=== PATIENT | female | born 1940 ===

== ENCOUNTER 2017-08-14 06:35 | Day surgery (SDC) | payer MEDICARE, MEDICAID ==
[2017-08-14] MEDS ORDERED: ceFAZolin 1 gm in NS 1 GM/100 ML BAG IVPB ONE (06:51)
[2017-08-14] MEDS ORDERED: Lactated Ringer's 500 ML IV ONE (09:30)
[2017-08-14] MEDS ORDERED: Propofol 10 mg/ml Inj (20 ML) ONE (09:40)
[2017-08-14] MEDS ORDERED: Midazolam 2 MG/2 ML VIAL ONE (09:41)
[2017-08-14] MEDS ORDERED: HYDROmorphone 0.5 mg/0.5 ml ISec IVP PRN (10:15)
[2017-08-14] MEDS ORDERED: Lactated Ringer's 1,000 ML IV ONE (12:00)
[2017-08-14] MEDS ORDERED: Morphine 10 mg/5 ml Oral Soln PO PRN (12:09)
[2017-08-14] MEDS ORDERED: Dextrose 5%/0.45% NS 1,000 ML IV SCH (12:15)
[2017-08-14 12:49] VITALS: RESP 18
[2017-08-14 12:59] VITALS: O2SAT 98
[2017-08-14 13:38] VITALS: BP 135/67; PULSE 73; TEMP 97.8
--- NOTE | 2017-08-14 20:21 | OP ---
PROCEDURE DATE: 08/14/2017 PREOPERATIVE DIAGNOSIS: Large left tonsil. POSTOPERATIVE DIAGNOSIS: Large left tonsil. PROCEDURE: Tonsillectomy. SIGNIFICANT FINDINGS: Enlarged left tonsil. DESCRIPTION OF PROCEDURE: The patient was brought into the room, placed in a supine position. Anesthesia was initiated through an ET tube. The patient was draped in the usual manner. A mouth gag was placed in the oral cavity, opened and suspended on the [employer] project design engineer the usual manner. Left tonsil was grasped and pulled medially. Incision was made in the anterior tonsillar pillar using coblation. Dissections were done between tonsil and tonsillar fossa using coblation until the tonsil was removed. Bleeding was controlled using coblation. Mouth gag was let down for 30 seconds, put back up, no bleeding was noted. The left tonsillar bed was rubbed vigorously with coblation wand. No bleeding was noted. Mouth gag was taken out and removed. The patient was taken off anesthesia and taken to recovery room in stable manner. Rajendra Russell MD
== END 2017-08-14 13:35 | disposition home or self-care (01) ==
LOC: C.SDS 06:35
PROVIDERS: ATTEND Otolaryngology
DX: J35.1 Hypertrophy of tonsils (principal)
CPT/HCPCS: 42826; 82948; 87070; 87181; 88304; 88342; J0690; J1170; J2250; J2704; J3010; J7040; J7120

== ENCOUNTER 2018-02-19 07:19 | Day surgery (SDC) | payer MEDICARE, MEDICAID ==
[2018-02-04 08:11] VITALS: BMI 25.6
[~2018-02-19 07:19] MED LIST: ceFAZolin 1 gm in NS 1 GM/100 ML BAG IVPB ONE
[2018-02-19] MEDS ORDERED: Morphine 10 mg/5 ml Oral Soln PO PRN (08:07)
[2018-02-19] MEDS ORDERED: Dextrose 5%/0.45% NS 1,000 ML IV SCH (08:15)
[2018-02-19] MEDS ORDERED: Propofol 10 mg/ml Inj (20 ML) ONE ×2 (10:14→11:34)
[2018-02-19] MEDS ORDERED: Midazolam 2 MG/2 ML VIAL ONE ×2 (10:14→11:14)
[2018-02-19] MEDS: HYDROmorphone 0.5 mg/0.5 ml ISec IVP PRN ×2 (11:15→11:31)
[2018-02-19 12:16] VITALS: RESP 16; O2SAT 98
[2018-02-19 12:50] VITALS: BP 149/62; PULSE 68; TEMP 97.9
--- NOTE | 2018-02-19 21:41 | OP ---
PROCEDURE DATE: 02/19/2018 PREOPERATIVE DIAGNOSES: Possible left base of tongue lesion and possible right tonsil lesion. POSTOPERATIVE DIAGNOSES: Possible left base of tongue lesion and possible right tonsil lesion. PROCEDURE: Direct laryngoscopy and biopsy with right tonsillectomy. SIGNIFICANT FINDINGS: No masses or lesions noted. DESCRIPTION OF PROCEDURE: The patient was brought into the room, placed in supine position. Anesthesia was initiated through an ET tube. The patient was draped in the usual manner. Tooth guard was placed over the upper teeth. Direct laryngoscope was inserted into the oral cavity, passed to the oropharynx and hypopharynx. The base of tongue, vallecula, epiglottis, AE folds, false cords, true cords, piriform sinuses, arytenoids were brought into the view as well as the pharyngeal wall. No masses or lesions were noted. Biopsies of the base of tongue of right and left were taken. Bleeding was controlled using cold water irrigation. Direct laryngoscope was removed. The tooth guard was removed. The mouth gag was placed in the oral cavity, opened and suspended on the [employer] hospital education coordinator the usual manner. Right tonsil was grabbed and pulled medially. Incision was made in the anterior tonsillar pillar using coblation. Dissection was done between tonsil and tonsillar fossa using coblation until the tonsil was removed. Bleeding was controlled using coblation. Tonsillar bed was rubbed vigorously with coblation wand. No bleeding was noted. Mouth gag was let down for 30 seconds and put back up, no bleeding was noted. Mouth gag was taken down and removed. The patient was taken off anesthesia and taken to the recovery room in stable manner. Rajendra Russell MD [facility]
== END 2018-02-19 12:50 | disposition home or self-care (01) ==
LOC: C.SDS 07:19
PROVIDERS: ATTEND Otolaryngology
DX: C85.99 Non-Hodgkin lymphoma, unspecified, extranodal and solid organ sites (principal)
CPT/HCPCS: 31535; 42826; 82948; 88304; 88307; J0690; J1170; J2001; J2250; J2704; J3010; J7040